=== PATIENT | male | born 1955 | race Caucasian/White ===

== ENCOUNTER 2017-04-07 12:49 | Day surgery (SDC) | payer OTHER ==
[~2017-04-07] VITALS: Ht 180.3 cm; Wt 78.0 kg
[~2017-04-07 12:49] MED LIST: ACCOLATE20 MG PO; ADVAIR 250/501 DISK IH; ASPIRIN325 MG PO; BENAZEPRIL HCL20 MG PO; CARDIZEM CD360 MG PO; DIVALPROEX SOD250 MG PO; DURAGESIC25 MCG TD; ELAVIL25 MG PO; ENDOCET 7.5-321 EACH PO; FUROSEMIDE20 MG PO; GABAPENTIN800 MG PO; KLONOPIN0.5 M1 PO; LASIX40 MG PO; LOPRESSOR25 MG PO; MELOXICAM7.5 MG PO; MONTELUKAST SOD10 MG PO; MYCOSTATIN 100,60 ML PO; NAPROXEN500 MG PO; NICODERM CQ1 EAC2 TD; NITROSTAT0.4 MG SL; OMEPRAZOLE20 MG PO; PANTOPRAZOLE SO40 MG PO; PLAVIX75 MG PO; POTASSIUM CHLO10 ME3 PO; PRAVASTATIN SOD40 MG PO; PROVENTIL,2.5 MG/3 M IH; SERTRALINE HCL100 MG PO; SIMVASTATIN40 MG PO; SYMBICORT60 INHALA1 IH; THEOCHRON300 MG PO; TRAZODONE HCL100 MG PO; ULTRAM50 MG PO; VENTOLIN HFA18 GM IH; VOLTAREN 1% GE100 GM TP
[2017-04-13] MEDS ORDERED: ENDOCET 10-3251 EACH PO (13:14)
[2017-04-13] MEDS ORDERED: PROTONIX40 MG PO (13:15)
[2017-04-13] MEDS ORDERED: VITAMIN D31000 UNIT PO (13:16)
[2017-04-13] MEDS ORDERED: LASIX40 MG PO (13:16)
[2017-04-13] MEDS ORDERED: SINGULAIR10 MG PO (13:17)
[2017-04-13] MEDS ORDERED: PROVENTIL,2.5 MG/3 M IH (13:17)
[2017-04-13] MEDS ORDERED: MOBIC7.5 MG PO (13:18)
== END 2017-04-07 14:17 | disposition home or self-care (01) ==
LOC: PAIN 12:49 → SDC 13:30 → PAIN 13:30
DX: M47.816 Spondylosis without myelopathy or radiculopathy, lumbar region (principal); M54.5 Low back pain; M51.36 Other intervertebral disc degeneration, lumbar region; M79.1 Myalgia; J44.9 Chronic obstructive pulmonary disease, unspecified; I25.2 Old myocardial infarction; K21.9 Gastro-esophageal reflux disease without esophagitis; I11.0 Hypertensive heart disease with heart failure; I50.9 Heart failure, unspecified; E78.5 Hyperlipidemia, unspecified; Z79.891 Long term (current) use of opiate analgesic; Z79.02 Long term (current) use of antithrombotics/antiplatelets; F17.210 Nicotine dependence, cigarettes, uncomplicated
CPT/HCPCS: J1030; J2250; J3010; S0020

== ENCOUNTER 2017-07-20 09:05 | Day surgery (SDC) | payer OTHER ==
[~2017-07-20] VITALS: Ht 180.3 cm; Wt 78.0 kg
[~2017-07-20 09:05] MED LIST changes: +ENDOCET 10-3251 EACH PO; +MOBIC7.5 MG PO; +PROTONIX40 MG PO; +SINGULAIR10 MG PO; +VITAMIN D31000 UNIT PO
== END 2017-07-20 10:40 | disposition home or self-care (01) ==
LOC: PAIN 09:05
DX: M47.816 Spondylosis without myelopathy or radiculopathy, lumbar region (principal); M54.5 Low back pain; G89.29 Other chronic pain; M51.36 Other intervertebral disc degeneration, lumbar region; M79.1 Myalgia; I10 Essential (primary) hypertension; E78.5 Hyperlipidemia, unspecified; K21.9 Gastro-esophageal reflux disease without esophagitis; Z95.2 Presence of prosthetic heart valve; M16.11 Unilateral primary osteoarthritis, right hip; J44.9 Chronic obstructive pulmonary disease, unspecified; I25.2 Old myocardial infarction; Z79.891 Long term (current) use of opiate analgesic; F17.200 Nicotine dependence, unspecified, uncomplicated; Z79.02 Long term (current) use of antithrombotics/antiplatelets
CPT/HCPCS: J1030; J2250; J3010; S0020